=== PATIENT | female | born 1965 | race Caucasian/White ===

== ENCOUNTER → 2021-06-26 | Outpatient (CLI) | payer BC ==
--- NOTE | 2021-06-26 16:25 | Diagnostic Imaging Report ---
MRI LT LOWER EXT JOINT W/O TECHNIQUE: Multiplanar, multisequence MR imaging of the left knee was performed without contrast. COMPARISON: None available. INDICATION: Left knee pain. FINDINGS: MENISCI Medial meniscus: Complete radial tear of the posterior root of the medial meniscus. Abnormal signal throughout the substance of the remainder of the meniscus is likely due to intrasubstance degeneration. Lateral meniscus: Intact. LIGAMENTS ACL: Intact. PCL: Intact. MCL: Intact. LCL: The lateral collateral ligamentous complex is intact. EXTENSOR MECHANISM The extensor mechanism is intact. CARTILAGE Medial compartment: Medial compartment articular cartilage is well preserved without focal high-grade chondromalacia. Lateral compartment: The lateral compartment articular cartilage is preserved without high-grade chondromalacia. Patellofemoral compartment: Low-grade partial-thickness chondral fissuring and delamination in the lateral patellar facet. BONE There is a nondepressed subchondral insufficiency fracture involving the central weightbearing aspect of the medial femoral condyle. This has a moderate amount of surrounding bone marrow edema throughout the medial femoral condyle. There is a 15 x 12 mm benign enchondroma in the central intercondylar region of the femoral metaphysis. SOFT TISSUE Small knee joint effusion. Moderate-sized Frances's cyst is partially ruptured as there is fluid extending from its inferior aspect along the superficial fascia of the medial head of gastrocnemius. IMPRESSION: 1. Complete radial tear at the posterior root of the medial meniscus. 2. Nondepressed insufficiency fracture in the medial femoral condyle. 3. 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 Otherwise, articular cartilage is well preserved. 4. Moderate-sized Frances's cyst is partially ruptured with fluid tracking along the superficial fascia of the medial head of gastrocnemius. Dictated by: Dictated on workstation # [id number]
== END ==
LOC: RAD 10:29
PROVIDERS: ATTEND Nurse Practitioner Family
DX: S83.242A Other tear of medial meniscus, current injury, left knee, initial encounter (principal); S72.435A Nondisplaced fracture of medial condyle of left femur, initial encounter for closed fracture; M66.0 Rupture of popliteal cyst; X58.XXXA Exposure to other specified factors, initial encounter
CPT/HCPCS: 73721

== ENCOUNTER → 2023-08-26 | Outpatient (CLI) | payer OTHER | LOC: CANPRECLI → CARD 10:04 | PROVIDERS: ATTEND Internal Medicine Cardiovascular Disease | DX: I31.39 Other pericardial effusion (noninflammatory) (principal) | CPT/HCPCS: 93306 ==